=== PATIENT | female | born 1940 | race Caucasian/White ===

== ENCOUNTER 2016-12-13 08:52 | Emergency (ER) | payer OTHER ==
[~2016-12-13] VITALS: Ht 162.6 cm; Wt 64.0 kg
[~2016-12-13 08:52] MED LIST: ACETAMINOPHEN-1 EAC1 PO; AMANTADINE100 M1 PO; AMLODIPINE BESYL5 MG PO; B-100 COMPLEX1 EACH PO; BACTRIM,SEPT1 TABLET PO; BENICAR HCT 201 EACH PO; BENICAR HCT1 TABLET PO; CALCIUM CITRAT250 MG PO; CARBIDOPA/LEVO1 EACH GT; CARBIDOPA/LEVO1 EACH PO; COLACE100 MG PO; COUMADIN,JANTOVE6 MG PO; CYANOCOBALAM1000 MCG PO; DAILY VITAMIN1 EAC8 PO; DULCOLAX5 MG PO; ENTACAPONE200 MG PO; Effexor PO; FEOSOL325 MG PO; FISH OIL 1,2001 EAC4 PO; FOLIC ACID0.8 M1 PO; FOLIC ACID0.8 MG PO; FOLVITE1 MG PO; LISINOPRIL20 MG GT; MOTRIN600 MG PO; MYRBETRIQ25 MG PO; OMEPRAZOLE20 MG PO; ONE DAILY1 EAC3 PO; Omega III EPA + DHA PO; Oyst-Cal D, Oscal W/ PO; PERDIEM15 MG PO; PRAMIPEXOLE D0.25 MG PO; PROZAC20 MG PO; PROZAC40 MG PO; RYTARY ER 36.21 EACH PO; SENOKOT S,PE1 TABLET PO; SINEMET 25-1001 EACH PO; SINEMET 25-2501 EAC1 PO; SKELAXIN800 MG PO; ST. JOSEPH ASPI81 MG PO; SYNTHROID75 MCG PO; THERAGRAN1 TABLET PO; THIAMINE,VITAM100 MG PO; TRAMADOL HCL50 MG PO; TYLENOL EXTRA500 MG PO; Tylenol Regular Stre PO; VITAMIN B-1100 MG PO; VITAMIN B12-FO1 EACH PO; VITAMIN B122500 MCG PO; Vitamin B-12 PO; ZOCOR80 MG PO; Zocor PO
[2016-12-13 09:49] LABS: BASOPHIL COUNT 0.1 K/uL (0-0.1); EOSINOPHIL (%) 1.3 % (0-5); EOSINOPHIL COUNT 0.1 K/uL (0-0.3); HEMATOCRIT 39.7 % (36.0-46.0); IMMATURE GRANULOCYTE (%) 0.2 % (0.0-0.7); LYMPHOCYTE COUNT 1.2 K/uL (1.0-2.8); MCH 28.7 PG (29.0-34.0); MCHC 32.7 G/DL (30.0-36.0); MCV 87.6 FL (83-99); MEAN PLAT.VOLUME 9.2 uM^3 (9.5-12.4); MONOCYTE (%) 10.4 % (3-12); MONOCYTE COUNT 0.9 K/uL (0-0.8); NEUTROPHIL (%) 73.2 % (45-76); PLATELET COUNT 242 K/uL (156-360); RBC DIS.WIDTH-SD 41.5 % (39-53); RED BLOOD COUNT 4.53 M/uL (3.80-5.20); WHITE BLOOD COUNT 8.2 K/uL (4.1-10.2)
[2016-12-13 09:59] LABS: CHLORIDE 105 mEq/L (99-109); POTASSIUM 3.3 mEq/L (3.7-5.4); SODIUM 140 mEq/L (136-147)
[2016-12-13 10:01] LABS: GLUCOSE 105 mg/dL (70-99)
[2016-12-13 10:03] LABS: ANION GAP 9 MEQ/L (2-14); TOTAL BILIRUBIN 1.1 mg/dL (0.0-1.0)
[2016-12-13 10:05] LABS: ALKALINE PHOSPHATASE 55 IU/L (3-129); GFR ESTIMATE (CALCULATED) > 59 mL/min/
[2016-12-13 10:06] LABS: UREA NITROGEN (BUN) 25 mg/dL (9-23)
[2016-12-13 10:08] LABS: CREATINE KINASE 543 IU/L (1-294); TOTAL CK 543 IU/L (1-294)
[2016-12-13 10:15] LABS: CK-MB 9.7 ng/mL (0.0-4.9)
[2016-12-13 10:59] LABS: ADD MIUA? YES; BILIRUBIN NEGATIVE; BLOOD SMALL; COLOR YELLOW ((YELLOW)); GLUCOSE (STRIP) NEGATIVE; KETONES 20; LEUKOCYTES MODERATE; NITRITE POSITIVE; PROTEIN (STRIP) NEGATIVE; SPECIFIC GRAVITY 1.018 (1.000-1.030)
[2016-12-13 12:01] LABS: EPITHELIAL CELLS 1+ /HPF; MUCUS 1+ /LPF; RED BLOOD CELLS 0-5 /HPF (0-5); WHITE BLOOD CELLS 15-20 /HPF (0-5)
[2016-12-13 12:02] LABS: BACTERIA 4+ /HPF; UCUL ADDED? YES
[2016-12-13] MEDS ORDERED: RYTARY ER 61.21 EACH PO (12:26)
[2016-12-13] MEDS ORDERED: CIPRO500 MG PO (14:39)
[2016-12-13 15:32] VITALS: BP 115/56
== END 2016-12-13 15:35 | disposition home or self-care (01) ==
LOC: EME 08:52
PROVIDERS: Emergency Medicine
DX: G20 Parkinson's disease (principal); N39.0 Urinary tract infection, site not specified; Z91.81 History of falling; M79.603 Pain in arm, unspecified; Z79.82 Long term (current) use of aspirin
CPT/HCPCS: 71010; 80053; 81003; 82550; 82553; 85025; 87077; 87086; 87186; 93005; 99281; 99285; G8987 GO CJ; G8988 CI; G8989 GO CH; J7030

== ENCOUNTER 2017-03-22 13:35 | Emergency (ER) | payer OTHER ==
[~2017-03-22] VITALS: Ht 162.6 cm; Wt 60.9 kg
[~2017-03-22 13:35] MED LIST changes: +CIPRO500 MG PO; +RYTARY ER 61.21 EACH PO
[2017-03-22 13:52] VITALS: BP 126/74
== END 2017-03-22 15:31 | disposition home or self-care (01) ==
LOC: EME 13:35
DX: S01.81XA Laceration without foreign body of other part of head, initial encounter (principal); W18.2XXA Fall in (into) shower or empty bathtub, initial encounter; Y93.E1 Activity, personal bathing and showering; Y92.002 Bathroom of unspecified non-institutional (private) residence as the place of occurrence of the external cause; I10 Essential (primary) hypertension; F32.9 Major depressive disorder, single episode, unspecified; F41.9 Anxiety disorder, unspecified; G20 Parkinson's disease; Z85.3 Personal history of malignant neoplasm of breast; Z88.5 Allergy status to narcotic agent; Z79.82 Long term (current) use of aspirin
CPT/HCPCS: 70450; 99281; 99284

== ENCOUNTER 2017-06-13 10:54 | Emergency (ER) | payer OTHER ==
[~2017-06-13] VITALS: Ht 162.6 cm; Wt 65.4 kg
[2017-06-13 13:06] LABS: ADD MIUA? YES; BILIRUBIN NEGATIVE; BLOOD NEGATIVE; GLUCOSE (STRIP) NEGATIVE; KETONES 5; LEUKOCYTES SMALL; NITRITE POSITIVE; PROTEIN (STRIP) NEGATIVE; SPECIFIC GRAVITY 1.014 (1.000-1.030); UROBILINOGEN 0.2 MG/DL (0.2-1.0)
[2017-06-13 13:09] LABS: COLOR DK YELLOW ((YELLOW))
[2017-06-13 13:13] LABS: BACTERIA 2+ /HPF; EPITHELIAL CELLS RARE /HPF; MUCUS TRACE /LPF; UCUL ADDED? YES
[2017-06-13] MEDS ORDERED: KEFLEX500 MG PO (15:04)
[2017-06-13 15:54] VITALS: BP 141/79
== END 2017-06-13 15:56 | disposition home or self-care (01) ==
LOC: EME 10:54
PROVIDERS: Emergency Medicine
PROC: 0HQ1XZZ Repair Face Skin, External Approach (ICD-10-PCS; principal; 2017-06-13)
DX: S01.81XA Laceration without foreign body of other part of head, initial encounter (principal); W06.XXXA Fall from bed, initial encounter; Y92.193 Bedroom in other specified residential institution as the place of occurrence of the external cause; N39.0 Urinary tract infection, site not specified; I10 Essential (primary) hypertension; Z85.3 Personal history of malignant neoplasm of breast; Z79.82 Long term (current) use of aspirin; Z87.891 Personal history of nicotine dependence
CPT/HCPCS: 70450; 81003; 87077; 87086; 87186; 99281; 99284

== ENCOUNTER 2017-09-10 04:00 | Emergency (ER) | payer OTHER ==
[~2017-09-10] VITALS: Ht 162.6 cm; Wt 68.1 kg
[~2017-09-10 04:00] MED LIST changes: +KEFLEX500 MG PO
[2017-09-10 05:34] LABS: CHLORIDE 108 mEq/L (99-109); POTASSIUM 3.7 mEq/L (3.7-5.4); SODIUM 140 mEq/L (136-147)
[2017-09-10 05:35] LABS: GLUCOSE 99 mg/dL (70-99)
[2017-09-10 05:37] LABS: ANION GAP 8 MEQ/L (2-14)
[2017-09-10 05:39] LABS: GFR ESTIMATE (CALCULATED) > 59 mL/min/
[2017-09-10 05:40] LABS: UREA NITROGEN (BUN) 24 mg/dL (9-23)
[2017-09-10 05:52] LABS: BASOPHIL COUNT 0.1 K/uL (0-0.1); EOSINOPHIL (%) 2.6 % (0-5); EOSINOPHIL COUNT 0.3 K/uL (0-0.3); HEMATOCRIT 40.7 % (36.0-46.0); IMMATURE GRANULOCYTE (%) 0.7 % (0.0-0.7); IMMATURE GRANULOCYTE COUNT 0.1 K/uL; INSTRUMENT ABS NEUTROPHIL CT 7.2 K/uL; LYMPHOCYTE COUNT 1.4 K/uL (1.0-2.8); MCH 29.6 PG (29.0-34.0); MCHC 33.4 G/DL (30.0-36.0); MCV 88.5 FL (83-99); MEAN PLAT.VOLUME 9.9 uM^3 (9.5-12.4); MONOCYTE (%) 8.1 % (3-12); MONOCYTE COUNT 0.8 K/uL (0-0.8); NEUTROPHIL COUNT 7.2 K/uL (1.8-6.4); PLATELET COUNT 223 K/uL (156-360); RBC DIS.WIDTH-CV 12.8 % (11.8-14.6); RBC DIS.WIDTH-SD 41.5 % (39-53); WHITE BLOOD COUNT 9.8 K/uL (4.1-10.2)
[2017-09-10] MEDS ORDERED: LIDOCAINE700 MG TP (06:37)
[2017-09-10 07:31] VITALS: BP 119/67
[2017-09-10] MEDS ORDERED: TYLENOL EXTRA500 MG PO (14:49)
[2017-09-10] MEDS ORDERED: TYLENOL REGULA325 MG PO (14:50)
[2017-09-10] MEDS ORDERED: LAXATIVE5 M1 PO (14:50)
[2017-09-10] MEDS ORDERED: CERAVE453 GM TP (14:51)
[2017-09-10] MEDS ORDERED: FOLIC ACID0.4 MG PO (14:51)
[2017-09-10] MEDS ORDERED: LEVOTHYROXINE75 MCG PO (14:52)
[2017-09-10] MEDS ORDERED: MAGNESIUM OXID400 MG PO (14:54)
[2017-09-10] MEDS ORDERED: OMEPRAZOLE20 MG PO (14:55)
[2017-09-10] MEDS ORDERED: MULTIPLE VITAM1 EAC4 PO (14:55)
[2017-09-10] MEDS ORDERED: MIRAPEX0.25 MG PO (14:55)
[2017-09-10] MEDS ORDERED: SERTRALINE HCL25 MG PO (15:07)
[2017-09-10] MEDS ORDERED: ZOLOFT25 MG PO (15:08)
[2017-09-10] MEDS ORDERED: B-1100 MG PO (15:09)
[2017-09-10] MEDS ORDERED: SINEMET CR 50-1 EACH PO (15:11)
[2017-09-10] MEDS ORDERED: CARBIDOPA/LEVO1 EACH PO (15:11)
[2017-09-10] MEDS ORDERED: SINEMET 25-1001 EACH PO (18:03)
[2017-09-10] MEDS ORDERED: DITROPAN5 MG PO (18:07)
[2017-09-10] MEDS ORDERED: TRAZODONE HCL50 MG PO (18:11)
[2017-09-11] MEDS ORDERED: KEFLEX250 MG PO (14:28)
== END 2017-09-10 07:35 | disposition home or self-care (01) ==
LOC: EME 04:00
PROVIDERS: Emergency Medicine
PROC: 0SSQXZZ Reposition Left Toe Phalangeal Joint, External Approach (ICD-10-PCS; principal; 2017-09-10)
DX: S90.32XA Contusion of left foot, initial encounter (principal); S80.02XA Contusion of left knee, initial encounter; S93.115A Dislocation of interphalangeal joint of left lesser toe(s), initial encounter; M54.5 Low back pain; G89.29 Other chronic pain; I10 Essential (primary) hypertension; G20 Parkinson's disease; F41.9 Anxiety disorder, unspecified; F32.9 Major depressive disorder, single episode, unspecified; W18.11XA Fall from or off toilet without subsequent striking against object, initial encounter; Z87.891 Personal history of nicotine dependence; Z85.3 Personal history of malignant neoplasm of breast; Z96.652 Presence of left artificial knee joint; Z88.5 Allergy status to narcotic agent
CPT/HCPCS: 72100; 73522; 73564; 73630; 80048; 83880; 85025; 99281; 99285

== ENCOUNTER 2017-09-10 12:01 | Observation (INO) | payer OTHER ==
[~2017-09-10] VITALS: Ht 162.6 cm; Wt 70.0 kg
[~2017-09-10 12:01] MED LIST changes: +LIDOCAINE700 MG TP
[2017-09-10 12:38] LABS: BASOPHIL COUNT 0.1 K/uL (0-0.1); EOSINOPHIL (%) 2.9 % (0-5); EOSINOPHIL COUNT 0.2 K/uL (0-0.3); HEMATOCRIT 39.7 % (36.0-46.0); IMMATURE GRANULOCYTE (%) 0.5 % (0.0-0.7); INSTRUMENT ABS NEUTROPHIL CT 4.2 K/uL; LYMPHOCYTE COUNT 1.4 K/uL (1.0-2.8); MCH 29.8 PG (29.0-34.0); MCHC 33.5 G/DL (30.0-36.0); MCV 88.8 FL (83-99); MEAN PLAT.VOLUME 9.5 uM^3 (9.5-12.4); MONOCYTE (%) 10.6 % (3-12); MONOCYTE COUNT 0.7 K/uL (0-0.8); NEUTROPHIL (%) 63.6 % (45-76); NEUTROPHIL COUNT 4.2 K/uL (1.8-6.4); PLATELET COUNT 194 K/uL (156-360); RBC DIS.WIDTH-CV 12.9 % (11.8-14.6); RBC DIS.WIDTH-SD 41.9 % (39-53); RED BLOOD COUNT 4.47 M/uL (3.80-5.20); WHITE BLOOD COUNT 6.5 K/uL (4.1-10.2)
[2017-09-10 12:44] LABS: D-DIMER ELISA < 150.00 ng/mLDDU (<230)
[2017-09-10 12:45] LABS: CHLORIDE 107 mEq/L (99-109); POTASSIUM 3.9 mEq/L (3.7-5.4); SODIUM 143 mEq/L (136-147)
[2017-09-10 12:47] LABS: GLUCOSE 133 mg/dL (70-99)
[2017-09-10 12:49] LABS: ANION GAP 9 MEQ/L (2-14); TOTAL BILIRUBIN 0.6 mg/dL (0.0-1.0)
[2017-09-10 12:51] LABS: ALKALINE PHOSPHATASE 57 IU/L (3-129); GFR ESTIMATE (CALCULATED) > 59 mL/min/
[2017-09-10 12:52] LABS: UREA NITROGEN (BUN) 23 mg/dL (9-23)
[2017-09-10 12:54] LABS: CREATINE KINASE 105 IU/L (1-294); TOTAL CK 105 IU/L (1-294)
[2017-09-10 12:57] LABS: TROP-I INTERPRETATION NEGATIVE; TROPONIN-I 0.03 ng/mL (0.0-0.30)
[2017-09-10 13:03] LABS: CK-MB 3.5 ng/mL (0.0-4.9)
[2017-09-10] MEDS ORDERED: TYLENOL EXTRA500 MG PO (14:49)
[2017-09-10] MEDS ORDERED: TYLENOL REGULA325 MG PO (14:50)
[2017-09-10] MEDS ORDERED: LAXATIVE5 M1 PO (14:50)
[2017-09-10] MEDS ORDERED: FOLIC ACID0.4 MG PO (14:51)
[2017-09-10] MEDS ORDERED: CERAVE453 GM TP (14:51)
[2017-09-10] MEDS ORDERED: LEVOTHYROXINE75 MCG PO (14:52)
[2017-09-10] MEDS ORDERED: MAGNESIUM OXID400 MG PO (14:54)
[2017-09-10] MEDS ORDERED: MULTIPLE VITAM1 EAC4 PO (14:55)
[2017-09-10] MEDS ORDERED: OMEPRAZOLE20 MG PO (14:55)
[2017-09-10] MEDS ORDERED: MIRAPEX0.25 MG PO (14:55)
[2017-09-10] MEDS ORDERED: SERTRALINE HCL25 MG PO (15:07)
[2017-09-10] MEDS ORDERED: ZOLOFT25 MG PO (15:08)
[2017-09-10] MEDS ORDERED: B-1100 MG PO (15:09)
[2017-09-10] MEDS ORDERED: SINEMET CR 50-1 EACH PO (15:11)
[2017-09-10] MEDS ORDERED: CARBIDOPA/LEVO1 EACH PO (15:11)
[2017-09-10 15:15] LABS: ADD MIUA? YES; BILIRUBIN NEGATIVE; BLOOD SMALL; COLOR YELLOW ((YELLOW)); GLUCOSE (STRIP) NEGATIVE; KETONES 5; LEUKOCYTES LARGE; NITRITE NEGATIVE; PROTEIN (STRIP) NEGATIVE; SPECIFIC GRAVITY 1.013 (1.000-1.030); UROBILINOGEN 0.2 MG/DL (0.2-1.0)
[2017-09-10 15:48] LABS: BACTERIA 4+ /HPF; CASTS NONE SEEN /LPF; EPITHELIAL CELLS 3+ /HPF; MUCUS TRACE /LPF; RED BLOOD CELLS NONE SEEN /HPF (0-5); WHITE BLOOD CELLS TNTC /HPF (0-5)
[2017-09-10 17:55] VITALS: BP 152/70
[2017-09-10] MEDS ORDERED: SINEMET 25-1001 EACH PO (18:03)
[2017-09-10] MEDS ORDERED: DITROPAN5 MG PO (18:07)
[2017-09-10] MEDS ORDERED: TRAZODONE HCL50 MG PO (18:11)
[2017-09-10 18:12] LABS: TROP-I INTERPRETATION NEGATIVE; TROPONIN-I < 0.01 ng/mL (0.0-0.30)
[2017-09-10 20:30] VITALS: BP 115/59
[2017-09-10 20:31] VITALS: BP 143/71
[2017-09-10 20:32] VITALS: BP 149/72
[2017-09-11 01:18] LABS: TROP-I INTERPRETATION NEGATIVE; TROPONIN-I < 0.01 ng/mL (0.0-0.30)
[2017-09-11 02:33] VITALS: BP 135/69
[2017-09-11 04:54] VITALS: BP 97/54
[2017-09-11 12:07] VITALS: BP 130/69
[2017-09-11] MEDS ORDERED: KEFLEX250 MG PO (14:28)
== END 2017-09-11 17:30 | disposition home or self-care (01) ==
LOC: EME 12:01 → 5WEST 14:52 → EDOF 14:52 → ENRESERV 14:55 → 5WEST 16:21
PROVIDERS: Emergency Medicine; Internal Medicine
DX: R55 Syncope and collapse (principal); G20 Parkinson's disease; E86.0 Dehydration; N39.0 Urinary tract infection, site not specified; B96.20 Unspecified Escherichia coli [E. coli] as the cause of diseases classified elsewhere; E03.9 Hypothyroidism, unspecified; F32.9 Major depressive disorder, single episode, unspecified; Z91.81 History of falling; M54.5 Low back pain; M79.605 Pain in left leg; Z86.19 Personal history of other infectious and parasitic diseases; Z79.82 Long term (current) use of aspirin; Z88.5 Allergy status to narcotic agent; Z88.6 Allergy status to analgesic agent; Z88.8 Allergy status to other drugs, medicaments and biological substances; Z85.3 Personal history of malignant neoplasm of breast
CPT/HCPCS: 70450; 71020; 80053; 81003; 82550; 82553; 84484; 85025 91; 85379; 87077; 87086; 87186; 93005; 93306; 99281; 99284; G0378; J0696; J1644; J7040